=== PATIENT | male | born 2000 | race Caucasian/White ===

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

== ENCOUNTER 2021-03-05 18:34 | Emergency (ER) | payer OTHER, BC ==
[2021-03-05 19:13] VITALS: TEMP 98.8; BMI 38.3
[2021-03-05] MEDS ORDERED: IBUPROFEN 600 MG TABLET (FP) PO ONE ×2 (20:55→21:02)
[2021-03-05 21:52] LABS: BASO % 0.4 % (0-2.0); EOS % 0.3 % (0-4.5); HEMATOCRIT 44.5 % (35.4-49); LYMPH % 24.5 % (8-40); MCH 27.6 pg (25.7-33.7); MCHC 33.6 g/dl (32.0-35.9); MEAN CELL VOLUME 82.1 fl (80-96); MONO % 6.1 % (3.8-10.2); NEUT % 68.7 % (42.8-82.8); PLATELET COUNT 356 10^3/uL (134-434); RBC 5.42 M/mm3 (4.00-5.60); RDW 14.1 % (11.9-15.9); WHITE BLOOD COUNT 9.9 K/mm3 (4.0-10.0)
[2021-03-05 22:09] LABS: ALBUMIN 4.5 g/dl (3.4-5.0); BLOOD UREA NITROGEN 10.5 mg/dL (7-18); CALCIUM 9.4 mg/dL (8.5-10.1)
[2021-03-05 22:12] LABS: CREATININE 0.8 mg/dL (0.55-1.3)
[2021-03-05 22:14] LABS: BILIRUBIN,TOTAL 0.3 mg/dL (0.2-1); TOT PROT 8.4 g/dl (6.4-8.2)
[2021-03-05 22:32] LABS: URINE APPEARANCE CLEAR; URINE BILIRUBIN NEGATIVE (NEGATIVE); URINE COLOR YELLOW; URINE GLUCOSE (UA) NEGATIVE (NEGATIVE); URINE KETONE TRACE (NEGATIVE); URINE LEUK ESTERASE NEGATIVE (NEGATIVE); URINE NITRITE NEGATIVE (NEGATIVE); URINE PROTEIN TRACE (NEGATIVE)
[2021-03-05 22:43] VITALS: BP 152/89; PULSE 126
== END 2021-03-05 23:20 | disposition home or self-care (01) ==
LOC: JER 18:34
DX: N20.0 Calculus of kidney (principal); N50.811 Right testicular pain
CPT/HCPCS: 36415; 74176-TC; 76870-TC; 80053; 81003; 85025; 87086; 99285-25